=== PATIENT | female | born 1950 | race Caucasian/White ===

== ENCOUNTER → 2018-04-06 | Outpatient (CLI) | payer OTHER | LOC: M.WC 09:00 | DX: M86.50 Other chronic hematogenous osteomyelitis, unspecified site (principal); Q82.4 Ectodermal dysplasia (anhidrotic); Z87.891 Personal history of nicotine dependence ==

== ENCOUNTER → 2018-05-25 | Outpatient (CLI) | payer OTHER | LOC: M.RAD 13:13 | DX: M81.0 Age-related osteoporosis without current pathological fracture (principal); M85.80 Other specified disorders of bone density and structure, unspecified site ==

== ENCOUNTER → 2018-06-21 | Outpatient (CLI) | payer OTHER | LOC: M.RAD 14:37 | DX: Z12.31 Encounter for screening mammogram for malignant neoplasm of breast (principal) ==

== ENCOUNTER → 2020-07-11 | Outpatient (CLI) | payer OTHER | LOC: M.RAD 09:15 | PROVIDERS: ATTEND Emergency Medicine | DX: M81.0 Age-related osteoporosis without current pathological fracture (principal) ==